=== PATIENT | male | born 1945 | race Caucasian/White ===

== ENCOUNTER 2018-10-21 13:07 | Day surgery (SDC) | payer MEDICARE, OTHER, SELFPAY ==
--- NOTE | 2018-10-21 | PATH_ITS ---
[facility] Accession Number: [id number] . 01 Material submitted: . HEPATIC FLEXURE POLYP AT 75CM . 02 Diagnosis: Hepatic Flexure, Polyp at 75 cm, Biopsy: Tubular adenoma. MRV/10/22/2018 . 02 Electronically signed: . Gema Winter MD, Pathologist NPI- [id number] . 01 Gross description: . Received in one formalin-filled container, labeled with the patient's name and labeled hepatic flexure polyp at 75 cm, are four 0.2-0.4 cm portions of tissue, entirely submitted in one cassette. ([id number]) /FRR . 02 Pathologist provided ICD-10: D12.3 . 02 CPT . 933839 Performed at: 01 [facility] [address] [id number] MD Hung Herndon MD Phone: [phone] Performed at: 02 [facility] [address] [place] [id number] MD Gema Winter MD Phone: [phone]
--- NOTE | 2018-10-21 13:27 | PM.PREOP ---
Pre-operative Note Interval Note History & Physical reviewed/Exam performed by Physician: Yes Changes to H&P: No H&P completed within 30 days and has changed as indicated here:: Patient seen and examined. History and physical examination from October 11, 2018 is on the chart and has not changed. Proceed with colonoscopy today as planned. ASA Class (for procedural sedation): II
[2018-10-21 13:31] VITALS: BP 112/69; PULSE 73; RESP 16; TEMP 36.6; O2SAT 95; BMI 30.2
[2018-10-21] MEDS: SODIUM CHLORIDE 0.9% 1,000 ML 200 ML IV (13:35)
[2018-10-21] MEDS: fentaNYL 250 MCG/5 ML INJ IV (14:01)
[2018-10-21] MEDS: MIDAZOLAM 5 MG/5 ML VIAL IV (14:02)
--- NOTE | 2018-10-21 14:22 | PM.OP.ENDO ---
Operative Date/Time/Diagnoses Date of procedure: 10/21/18 Time of procedure: 14:22 Pre-op diagnosis: Change in bowel habits and rectal bleeding Post-op diagnosis: other (Diverticulosis and colon polyp) Procedure & Clinicians Study performed: 1. Sedation per surgeon 2. Colonoscopy with cold forceps polypectomy Same procedure as scheduled: Yes Indications: 73-year-old male who presented with change in bowel habits and rectal bleeding. He was also having some fecal urgency. Colonoscopy was recommended. Surgeon: Nasir Ward Procedure Notes SCOAP/Timeout: Yes Procedure in detail: After obtaining informed consent, the patient was brought to the GI suite and placed in the left lateral decubitus position on the examination table. After placement of appropriate monitors, the patient was given incremental doses of Versed and Fentanyl until an appropriate level of sedation was achieved. A time out was held per SCOAP protocol. A digital rectal examination was performed and did not reveal any masses or obstructing lesions. The colonoscope was gently passed into the patient's anus and the entire colon navigated to the level of the cecum with minimal difficulty. Terminal ileum was intubated and noted to be grossly normal. Bowel preparation was suboptimal in places and required significant irrigation for adequate visualization. Once in the cecum, the scope was withdrawn being sure to go before and beyond all mucosal folds and prominences and get an excellent examination. The findings are noted above. At the level of the rectal vault, the scope was retroflexed and the internal anal canal was examined. The scope was straightened and air aspirated from the colon. The instrument was removed from the patient's body and the procedure was concluded. The patient was allowed to awaken from sedation without difficulty and taken to the post-anesthesia care unit in good condition. Scope withdrawal time: 8:32 min Sedation minutes: 24 Findings: diverticulosis and polyp Specimen(s): other (Hepatic flexure polyp at 75 cm) Complications: none Recommendations: Colonscopy in 5 years, High fiber diet and Will call with biopsy results Plan for aftercare: 1. Discharge home Follow up: as needed Disposition: PACU
[2018-10-21 14:26] VITALS: BP 115/65; PULSE 76; RESP 16; TEMP 36.6; O2SAT 93
[2018-10-21 14:31] VITALS: BP 118/69; PULSE 80; RESP 16; O2SAT 94
[2018-10-21 14:36] VITALS: BP 98/66; PULSE 64; RESP 16; O2SAT 93
[2018-10-21 14:40] VITALS: BP 107/66; PULSE 68; RESP 16; TEMP 36.4; O2SAT 93
[2018-10-21 15:05] VITALS: BP 112/68; PULSE 64; RESP 16; TEMP 36.5; O2SAT 96
[2018-10-21 15:33] VITALS: BMI 30.2
== END 2018-10-21 15:20 | disposition home or self-care (01) ==
PROVIDERS: PCP Internal Medicine Cardiovascular Disease; Visit Provider Surgery
PROC: 0DJD8ZZ Inspection of Lower Intestinal Tract, Via Natural or Artificial Opening Endoscopic (ICD-10-PCS; CPT 45378; principal; 2018-10-21 15:00)
DX: K62.5 Hemorrhage of anus and rectum (principal); K64.4 Residual hemorrhoidal skin tags; R19.4 Change in bowel habit; R15.2 Fecal urgency; K57.30 Diverticulosis of large intestine without perforation or abscess without bleeding; D12.3 Benign neoplasm of transverse colon
CPT/HCPCS: 45380; 88305; 99152; 99153; J2250; J3010

== ENCOUNTER → 2021-09-27 11:10 | Outpatient (CLI) | payer MEDICARE, OTHER, SELFPAY ==
[2021-09-27 12:44] LABS: BUN Creatinine Ratio 13.6 (6-22); Blood Urea Nitrogen 18 mg/dL (9-20); Estimated Glomerular Filt Rate 52.7 mL/min (>60)
== END ==
PROVIDERS: PCP Internal Medicine; Referring Provider Surgery; Visit Provider Surgery
DX: M62.08 Separation of muscle (nontraumatic), other site (principal)
CPT/HCPCS: 36415; 82565; 84520

== ENCOUNTER → 2021-09-30 12:44 | Outpatient (CLI) | payer MEDICARE, OTHER, SELFPAY ==
--- NOTE | 2021-09-30 12:47 | DI.CT.S_ITS ---
PROCEDURE: CT ABDOMEN PELVIS W CON INDICATIONS: rectus diastasis vs ventral hernia TECHNIQUE: After the administration of oral and IV contrast, axial sections were acquired from the lung bases to the pubic symphysis. Coronal and sagittal reformats were performed. For radiation dose reduction, the following was used: automated exposure control, adjustment of mA and/or kV according to patient size. Valsalva performed during the procedure. COMPARISON: None. FINDINGS: Image quality: Excellent. Lung bases: Unremarkable. Heart: Mild aortic valvular calcification. ABDOMEN: Liver: Right lobe is prominent. Gallbladder: Unremarkable. Biliary ducts: Unremarkable. Pancreas: Unremarkable. Spleen: Unremarkable. Adrenal Glands: No nodule. Kidneys and Ureters: No hydronephrosis. 3 nonobstructing left kidney stones at the inferior pole. Largest measures 0.5 cm. Stomach and Bowel: Stomach, small bowel loops, and colon are unremarkable. The appendix is not identified. Peritoneum: No abnormal intraperitoneal fluid. No free air. Missed the mesentery in the left abdomen. Small mesenteric nodes. Ventral Wall: Fat containing umbilical hernia. There may be rectus diastasis. Abdominal Nodes: No retroperitoneal or mesenteric adenopathy by size criteria. Vessels: Minimal ectasia of the abdominal aorta measuring 2.7 cm. Moderate calcified plaque. Right hepatic artery replaced to the SMA. PELVIS: Pelvic Organs: Prostate brachytherapy seeds. Bladder: Unremarkable. Pelvic Nodes: No enlarged lymph nodes. Miscellaneous: Possible small left inguinal hernia. Bones: Moderate hip DJD. Large vertebral body osteophytes. There are bridging osteophytes or syndesmophytes. Multilevel DDD. Loss of disc space height at L5-S1. There is anterolisthesis of L5 on S1. IMPRESSION: 1. Small fat containing umbilical hernia. Suspect rectus diastasis. 2. Hazy mesentery in the left abdomen. This is a nonspecific finding but could be seen in sclerosing mesenteritis. No free fluid. 3. Nonobstructing left kidney stones x3. Dictated by: Adam Nichole M.D. on 09/30/2021 at 13:54 Approved by: Adam Nichole M.D. on 09/30/2021 at 14:05
== END ==
PROVIDERS: PCP Internal Medicine; Referring Provider Surgery; Visit Provider Surgery
DX: K42.9 Umbilical hernia without obstruction or gangrene (principal); N20.0 Calculus of kidney; M16.9 Osteoarthritis of hip, unspecified
CPT/HCPCS: 74177

== ENCOUNTER 2023-11-18 14:30 | Outpatient (RCR) | payer MEDICARE, OTHER, SELFPAY ==
--- NOTE | 2023-09-15 16:42 | PT.OIE ---
Current Diagnoses Unilateral primary osteoarthritis, left knee (09/15/23) Past Medical History (Last Updated 09/11/21 @ 11:20 by Sandra Rocha RN) Bursopathy Dysphagia Hyperlipemia Low testosterone Osteoarthritis Past Surgical History (Last Reviewed 10/11/18 @ 14:56 by Nasir Ward MD) H/O arthroscopic knee surgery H/O cataract extraction H/O total knee replacement History of cataract removal with insertion of prosthetic lens History of colonoscopy History of right knee joint replacement Visit Care Team Role Provider Type Phuc Rea MD Family Provider Non-Staff Primary Care Provider Specialty: Internal Medicine Address: [address] [place] [address], [id number] Email: Pastora Ochoa PA-C Attending Provider Non-Staff Referring Provider Specialty: Medical Address: [address] [place] [address], [phone] Email: Physical Therapy Initial Evaluation PT-OP-A Visit Information Start: 09/15/23 13:36 Freq: Status: Active Protocol: Document 09/15/23 11:15 DCW (Rec: 09/15/23 13:40 [facility] [id number]) Out-Patient Physical Therapy Visit Information Visit Information Visit Type Initial Evaluation Visit Start Time 11:15 Visit Stop Time 12:00 Total Visit Minutes 45 Visit Number 1 Number of 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 Pt reports he underwent a right TKA in 2017, and notes that he didn't get to where they wanted me, but there was a lot more trauma to that knee over the years. Still limited significantly with right leg ROM, but was able to return to playing racquetball and pickle ball, which are his preferred hobbies, and would like to get back to them again following this most recent knee replacement. Notes pain is a 5/10 when I use it, but I can get it into comfortable positions and sleep pretty easily. PT-OP-C Subjective Start: 09/15/23 13:36 Freq: Status: Active Protocol: Document 09/15/23 11:15 DCW (Rec: 09/15/23 13:45 DCW [id number]) OP-PT Subjective Patient Comments Patient Comments I got my right knee done in 2017. It never got the motion to where they wanted it, but it's good enough it doesn't limit me. Patient Questionnaires Lower Extremity Functional Scale LEFS Score 40/80 = 50% LEFS Impairment 40 to 59% Impaired (Score 32- 47) PT-OP-E Functional Tests Start: 09/15/23 13:36 Freq: Status: Active Protocol: Document 09/15/23 11:15 DCW (Rec: 09/15/23 13:45 DCW [id number]) Functional Tests 2 Minute Walk Test Distance 254' Device Used FWW Comments 2.11 ft/sec 30 Second Sit to Stand Test Score x9 repetitions Timed Up and Go (TUG) Score 12.73 /c FWW Comments Three-trial Average (13.35, 14 .45, 11.46) TUG Impairment Rating 20 to <40% Impaired (Score 12- 13) PT-OP-K Range of Motion Start: 09/15/23 13:36 Freq: Status: Active Protocol: Document 09/15/23 11:15 DCW (Rec: 09/15/23 13:40 DCW [id number]) Knee Goniometric Range of Motion Knee Right Knee ROM WFL No Patient Position Supine Flexion Active (degrees) 102 Extension Active (degrees) 5 Comments 6? extension lag Left Knee ROM WFL No Patient Position Supine Flexion Active (degrees) 99 Extension Active (degrees) 12 Comments 20? extension lag PT-OP-Q Treatments Start: 09/15/23 13:36 Freq: Status: Active Protocol: Document 09/15/23 11:15 DCW (Rec: 09/15/23 13:40 DCW [id number]) Cardio Equipment Recumbent Bicycle Duration (Minutes) 9 Seat Position 7 Other Occasional full rotation PT-OP-T Assessment and Plan Start: 09/15/23 13:36 Freq: Status: Active Protocol: Document 09/15/23 11:15 DCW (Rec: 09/15/23 16:41 DC [id number]) Physical Therapy Assessment Rehab Potential Rehabilitation Potential Excellent Evaluation Complexity Number of Personal Factors/Comorbidities 1-2 Number of Body Systems Impaired 1-2 Clinical Presentation at Evaluation Stable Impairments Impairments Activity Tolerance,Functional Activities,Gait,ROM,Soft Tissue Mobility,Strength,Tone Goals Two Impairment Significantly limited left knee ROM 12?-99? Program Checker Goal (LTG) Increase left knee ROM to 0? extension and >120? flexion in order [facility] and improve ability to enter house with one JUSTIN LTG Duration 11/16/23 One Impairment Pt does not have an appropriate home exercise program Short Term Goal (STG) Pt to be independent and compliant with an appropriate HEP STG Duration 10/16/23 Assessment Summary Assessment Pt presents as expected one week s/p left TKA. Pt is demonstrating limited gait, decreased activity tolerance, limited knee ROM bilaterally, and weakness. Pt's right knee also significantly limited ROM following TKA 6 years ago. Overall, pt doing fairly well , did need adjustment to FWW, however able to ambulate much better following raising handles. Pt able to perform 9 repetitions during 30 sit-to- stand, ambulated 254' during 2MWT using FWW, and scored a 12.75 on his TUG. Pt should benefit from skilled therapy focusing on knee ROM, gait training, strengthening, and activity tolerance Physical Therapy Plan Frequency and Duration Frequency of Treatment 2x/Week Plan of Care Start Date 09/15/23 Plan of Care End Date 11/16/23 Therapeutic Interventions Therapeutic Interventions Balance Training,Gait Training ,Home Exercise Program,Joint Mobilizations,Manual Therapy, Neuromuscular Re-education, Patient/Caregiver Education, Self-Care/Home Management,Soft Tissue Mobilization, Therapeutic Activities, Therapeutic Exercises Modalities Cold Pack/Ice Massage,Electric Stimulation,Hot Packs, Ultrasound Next Visit Focus/Plan Next Note Type Treatment Note Next Visit Plan ROM, strengthening, gait training
--- NOTE | 2023-09-15 16:42 | PT.OPPOC ---
Physical, Occupational & Speech Therapy At [facility] Current Diagnoses Unilateral primary osteoarthritis, left knee (09/15/23) Visit Care Team Role Provider Type Phuc Rea MD Family Provider Non-Staff Primary Care Provider Specialty: Internal Medicine Address: [address] [place], [address] Email: Pastora Ochoa PA-C Attending Provider Non-Staff Referring Provider Specialty: Medical Address: [address] [place] [address], [phone] Email: Plan Of Care PT-OP-T Assessment and Plan Start: 09/15/23 13:36 Freq: Status: Active Protocol: Document 09/15/23 11:15 DCW (Rec: 09/15/23 16:41 DCW [id number]) Physical Therapy Assessment Rehab Potential Rehabilitation Potential Excellent Evaluation Complexity Number of Personal Factors/Comorbidities 1-2 Number of Body Systems Impaired 1-2 Clinical Presentation at Evaluation Stable Impairments Impairments Activity Tolerance,Functional Activities,Gait,ROM,Soft Tissue Mobility,Strength,Tone Goals Two Impairment Significantly limited left knee ROM 12?-99? Will Call Clerk Goal (LTG) Increase left knee ROM to 0? extension and >120? flexion in order to return to racquetball and improve ability to enter house with one JUSTIN LTG Duration 11/16/23 One Impairment Pt does not have an appropriate home exercise program Short Term Goal (STG) Pt to be independent and compliant with an appropriate HEP STG Duration 10/16/23 Assessment Summary Assessment Pt presents as expected one week s/p left TKA. Pt is demonstrating limited gait, decreased activity tolerance, limited knee ROM bilaterally, and weakness. Pt's right knee also significantly limited ROM following TKA 6 years ago. Overall, pt doing fairly well, did need adjustment to FWW, however able to ambulate much better following raising handles. Pt able to perform 9 repetitions during 30 sit-to- stand, ambulated 254' during 2MWT using FWW, and scored a 12.75 on his TUG. Pt should benefit from skilled therapy focusing on knee ROM, gait training, strengthening, and activity tolerance Physical Therapy Plan Frequency and Duration Frequency of Treatment 2x/Week Plan of Care Start Date 09/15/23 Plan of Care End Date 11/16/23 Therapeutic Interventions Therapeutic Interventions Balance Training,Gait Training ,Home Exercise Program,Joint Mobilizations,Manual Therapy, Neuromuscular Re-education, Patient/Caregiver Education, Self-Care/Home Management,Soft Tissue Mobilization, Therapeutic Activities, Therapeutic Exercises Modalities Cold Pack/Ice Massage,Electric Stimulation,Hot Packs, Ultrasound Next Visit Focus/Plan Next Note Type Treatment Note Next Visit Plan ROM, strengthening, gait training Plan of Care Dates Plan of Care Start Date 09/15/23 Plan of Care End Date 11/16/23 Electronically Signed by: Edis Epstein, PT 09/15/23 0164 If you are in agreement with this Plan of Care, please return a signed and dated copy. I have reviewed this Plan of Care and certify that the skilled therapy services above are required to meet the patient?s needs. Physician Signature Date Printed Name and Credentials Clinical Instructor Signature Printed Name and Credentials
--- NOTE | 2023-09-17 11:59 | PT.OTN ---
Current Diagnoses Unilateral primary osteoarthritis, left knee (09/17/23) Physical Therapy Treatment Note PT-OP-A Visit Information Start: 09/15/23 13:36 Freq: Status: Active Protocol: Document 09/17/23 11:18 DCW (Rec: 09/17/23 11:59 DCW [id number]) Out-Patient Physical Therapy Visit Information Visit Information Visit Type Treatment Note Visit Start Time 11:18 Visit Stop Time 12:00 Total Visit Minutes 42 Visit Number [address] LIGHT SERVICER Visits 0 Evaluation Information Evaluation Date 09/15/23 PT-OP-B Current Condition Start: 09/15/23 13:36 Freq: Status: Active Protocol: Document 09/15/23 11:15 DCW (Rec: 09/15/23 16:34 DCW [id number]) Current Condition History of Current Condition Onset Date 09/08/23 Current Complaints S/p left TKA History of Current Condition Pt attends his initial physical therapy evaluation one week s/p left TKA. Pt reports he underwent a right TKA in 2016, and notes that he didn't get to where they wanted me, but there was a lot more trauma to that knee over the years. Still limited significantly with right leg ROM, but was able to return to playing [employer] and pickle ball, which are his preferred hobbies, and would like to get back to them again following this most recent knee replacement. Notes pain is a 5/10 when I use it, but I can get it into comfortable positions and sleep pretty easily. PT-OP-C Subjective Start: 09/15/23 13:36 Freq: Status: Active Protocol: Document 09/17/23 11:18 DCW (Rec: 09/17/23 11:59 DCW [id number]) OP-PT Subjective Patient Comments Patient Comments Pt notes he is doing alright today, I haven't gotten into my strong meds yet. PT-OP-E Functional Tests Start: 09/15/23 13:36 Freq: Status: Active Protocol: Document 09/15/23 11:15 DCW (Rec: 09/15/23 13:45 DCW [id number]) Functional Tests 2 Minute Walk Test Distance 254' Device Used FWW Comments 2.11 ft/sec 30 Second Sit to Stand Test Score x9 repetitions Timed Up and Go (TUG) Score 12.73 /c FWW Comments Three-trial Average (13.35, 14 .45, 11.46) TUG Impairment Rating 20 to <40% Impaired (Score 12- 13) PT-OP-K Range of Motion Start: 09/15/23 13:36 Freq: Status: Active Protocol: Document 09/15/23 11:15 DCW (Rec: 09/15/23 13:40 DCW [id number]) Knee Goniometric Range of Motion Knee Right Knee ROM WFL No Patient Position Supine Flexion Active (degrees) 102 Extension Active (degrees) 5 Comments 6? extension lag Left Knee ROM WFL No Patient Position Supine Flexion Active (degrees) 99 Extension Active (degrees) 12 Comments 20? extension lag PT-OP-Q Treatments Start: 09/15/23 13:36 Freq: Status: Active Protocol: Document 09/17/23 11:18 DCW (Rec: 09/17/23 11:59 DCW [id number]) Cardio Equipment Recumbent Bicycle Duration (Minutes) 7 Resistance 2 Seat Position 7 Gym Equipment Shuttle Recovery Bilateral Squats Resistance 37# Shuttle Recovery Platform Stable Reps/Time Pause into extension Therapeutic Ball Knee Flexion Exercise Details Knee flexion /c strap Ball Size/Color Blue - 45 cm Body Position Supine Therapeutic Exercises Supine Exercises Quad sets Supine Exercise Name Quad sets during extension stretch, heels on bolster Side bilateral Standing Exercises Flexion Stretch Standing Exercise Name Step flexion stretch Side bilateral Manual Therapy Treatment Joint Mobilizations Knee Joint B Knee Direction A<->P Grade III Body Position Hooklying PT-OP-T Assessment and Plan Start: 09/15/23 13:36 Freq: Status: Active Protocol: Document 09/17/23 11:18 DCW (Rec: 09/17/23 11:59 DCW [id number]) Physical Therapy Assessment Impairments Impairments Activity Tolerance,Functional Activities,Gait,ROM,Soft Tissue Mobility,Strength,Tone Goals Two Impairment Significantly limited left knee ROM 12?-99? Longterm Goal (LTG) Increase left knee ROM to 0? extension and >120? flexion in order to return to racquetball and improve ability to enter house with one JUSTIN LTG Duration 11/16/23 One Impairment Pt does not have an appropriate home exercise program Short Term Goal (STG) Pt to be independent and compliant with an appropriate HEP STG Duration 10/16/23 Assessment Summary Assessment Pt able to get 117? passive flexion on left knee, significant improvement since initial evaluation, very good progress for 10 days post-op. Limited change with right knee following joint mobilization and stretching. Very good response overall today. Physical Therapy Plan Frequency and Duration Frequency of Treatment 2x/Week Plan of Care Start Date 09/15/23 Plan of Care End Date 11/16/23 Therapeutic Interventions Therapeutic Interventions Balance Training,Gait Training ,Home Exercise Program,Joint Mobilizations,Manual Therapy, Neuromuscular Re-education, Patient/Caregiver Education, Self-Care/Home Management,Soft Tissue Mobilization, Therapeutic Activities, Therapeutic Exercises Modalities Cold Pack/Ice Massage,Electric Stimulation,Hot Packs, Ultrasound Next Visit Focus/Plan Next Note Type Treatment Note Next Visit Plan ROM, strengthening, gait training
--- NOTE | 2023-09-22 10:29 | PT.OTN ---
Current Diagnoses Unilateral primary osteoarthritis, left knee (09/22/23) Physical Therapy Treatment Note PT-OP-A Visit Information Start: 09/15/23 13:36 Freq: Status: Active Protocol: Document 09/22/23 09:48 DCW (Rec: 09/22/23 10:29 DCW [id number]) Out-Patient Physical Therapy Visit Information Visit Information Visit Type Treatment Note Visit Start Time 09:48 Visit Stop Time 10:30 Total Visit Minutes 42 Visit Number 3 Number of TIN CUTTER Visits 0 Evaluation Information Evaluation Date 09/15/23 PT-OP-B Current Condition Start: 09/15/23 13:36 Freq: Status: Active Protocol: Document 09/15/23 11:15 DCW (Rec: 09/15/23 16:34 DCW [id number]) Current Condition History of Current Condition Onset Date 09/08/23 Current Complaints S/p left TKA History of Current Condition Pt attends his initial physical therapy evaluation one week s/p left TKA. Pt reports he underwent a right TKA in 2017, and notes that he didn't get to where they wanted me, but there was a lot more trauma to that knee over the years. Still limited significantly with right leg ROM, but was able to return to playing racqueLocaloall and pickle ball, which are his preferred hobbies, and would like to get back to them again following this most recent knee replacement. Notes pain is a 5/10 when I use it, but I can get it into comfortable positions and sleep pretty easily. PT-OP-C Subjective Start: 09/15/23 13:36 Freq: Status: Active Protocol: Document 09/22/23 09:48 DCW (Rec: 09/22/23 10:29 DCW [id number]) OP-PT Subjective Patient Comments Patient Comments My knees usually feel better in the morning than they do later in the day. PT-OP-E Functional Tests Start: 09/15/23 13:36 Freq: Status: Active Protocol: Document 09/15/23 11:15 DCW (Rec: 09/15/23 13:45 DCW [id number]) Functional Tests 2 Minute Walk Test Distance 254' Device Used FWW Comments 2.11 ft/sec 30 Second Sit to Stand Test Score x9 repetitions Timed Up and Go (TUG) Score 12.73 /c FWW Comments Three-trial Average (13.35, 14 .45, 11.46) TUG Impairment Rating 20 to <40% Impaired (Score 12- 13) PT-OP-K Range of Motion Start: 09/15/23 13:36 Freq: Status: Active Protocol: Document 09/15/23 11:15 DCW (Rec: 09/15/23 13:40 DCW [id number]) Knee Goniometric Range of Motion Knee Right Knee ROM WFL No Patient Position Supine Flexion Active (degrees) 102 Extension Active (degrees) 5 Comments 6? extension lag Left Knee ROM WFL No Patient Position Supine Flexion Active (degrees) 99 Extension Active (degrees) 12 Comments 20? extension lag PT-OP-Q Treatments Start: 09/15/23 13:36 Freq: Status: Active Protocol: Document 09/22/23 09:48 DCW (Rec: 09/22/23 10:29 DCW [id number]) Cardio Equipment Recumbent Bicycle Duration (Minutes) 7 Resistance 4 Seat Position 7 Gym Equipment Shuttle Recovery Bilateral Squats Resistance 50# Shuttle Recovery Platform Stable Reps/Time Pause into extension Therapeutic Exercises Standing Exercises TKE Standing Exercise Name TKE Side bilateral Resistance Lv 3 Flexion Stretch Standing Exercise Name Step flexion stretch Side bilateral Gait Training Gait Activity SPC Description SPC trial Device Used SPC Level of Assistance SBA Distance/Duration 300' Comments Sequencing, step length PT-OP-T Assessment and Plan Start: 09/15/23 13:36 Freq: Status: Active Protocol: Document 09/22/23 09:48 DCW (Rec: 09/22/23 10:29 DCW [id number]) Physical Therapy Assessment Impairments Impairments Activity Tolerance,Functional Activities,Gait,ROM,Soft Tissue Mobility,Strength,Tone Goals Two Impairment Significantly limited left knee ROM 12?-99? Drafter Automotive Design Layout Goal (LTG) Increase left knee ROM to 0? extension and >120? flexion in [facility] and improve ability to enter house with one JUSTIN LTG Duration 11/16/23 One Impairment Pt does not have an appropriate home exercise program Short Term Goal (STG) Pt to be independent and compliant with an appropriate HEP STG Duration 10/16/23 Assessment Summary Assessment Pt continues to have good response in left leg s/p L TKA , right prior TKA now becoming the bigger limiting factor. Pt tolerated gait with SPC well, encouraged to continue to use FWW or SPC walking around home, still antalgic gait with no AD. Physical Therapy Plan Frequency and Duration Frequency of Treatment 2x/Week Plan of Care Start Date 09/15/23 Plan of Care End Date 11/16/23 Therapeutic Interventions Therapeutic Interventions Balance Training,Gait Training ,Home Exercise Program,Joint Mobilizations,Manual Therapy, Neuromuscular Re-education, Patient/Caregiver Education, Self-Care/Home Management,Soft Tissue Mobilization, Therapeutic Activities, Therapeutic Exercises Modalities Cold Pack/Ice Massage,Electric Stimulation,Hot Packs, Ultrasound Next Visit Focus/Plan Next Note Type Treatment Note Next Visit Plan ROM, strengthening, gait training
--- NOTE | 2023-09-24 12:47 | PT.OTN ---
Current Diagnoses Unilateral primary osteoarthritis, left knee (09/24/23) Physical Therapy Treatment Note PT-OP-A Visit Information Start: 09/15/23 13:36 Freq: Status: Active Protocol: Document 09/24/23 11:11 SW (Rec: 09/24/23 12:44 [id number]) Out-Patient Physical Therapy Visit Information Visit Information Visit Type Treatment Note Visit Note Pt late Visit Start Time 11:33 Visit Stop Time 12:11 Total Visit Minutes 38 Visit Number 4 Number of PLANT SUPERINTENDENT Visits 1 PT-OP-B Current Condition Start: 09/15/23 13:36 Freq: Status: Active Protocol: Document 09/15/23 11:15 DCW (Rec: 09/15/23 16:34 DCW [id number]) Current Condition History of Current Condition Onset Date 09/08/23 Current Complaints S/p left TKA History of Current Condition Pt attends his initial physical therapy evaluation one week s/p left TKA. Pt reports he underwent a right TKA in 2016, and notes that he didn't get to where they wanted me, but there was a lot more trauma to that knee over the years. Still limited significantly with right leg ROM, but was able to return to playing racquetball and pickle ball, which are his preferred hobbies, and would like to get back to them again following this most recent knee replacement. Notes pain is a 5/10 when I use it, but I can get it into comfortable positions and sleep pretty easily. PT-OP-C Subjective Start: 09/15/23 13:36 Freq: Status: Active Protocol: Document 09/24/23 11:11 (Rec: 09/24/23 12:44 [id number]) OP-PT Subjective Patient Comments Patient Comments Pt reports he had his 2 week followup yesterday, scar tissue looked good and pt was cleared to drive. PT-OP-E Functional Tests Start: 09/15/23 13:36 Freq: Status: Active Protocol: Document 09/15/23 11:15 DCW (Rec: 09/15/23 13:45 DCW [id number]) Functional Tests 2 Minute Walk Test Distance 254' Device Used FWW Comments 2.11 ft/sec 30 Second Sit to Stand Test Score x9 repetitions Timed Up and Go (TUG) Score 12.73 /c FWW Comments Three-trial Average (13.35, 14 .45, 11.46) TUG Impairment Rating 20 to <40% Impaired (Score 12- 13) PT-OP-K Range of Motion Start: 09/15/23 13:36 Freq: Status: Active Protocol: Document 09/15/23 11:15 DCW (Rec: 09/15/23 13:40 DCW [id number]) Knee Goniometric Range of Motion Knee Right Knee ROM WFL No Patient Position Supine Flexion Active (degrees) 102 Extension Active (degrees) 5 Comments 6? extension lag Left Knee ROM WFL No Patient Position Supine Flexion Active (degrees) 99 Extension Active (degrees) 12 Comments 20? extension lag PT-OP-Q Treatments Start: 09/15/23 13:36 Freq: Status: Active Protocol: Document 09/24/23 11:11 SW (Rec: 09/24/23 12:44 SW [id number]) Cardio Equipment Recumbent Bicycle Duration (Minutes) 7 Resistance 4 Seat Position 6 Gym Equipment Shuttle Recovery Bilateral Squats Resistance 50# (new bands) Shuttle Recovery Platform Stable Reps/Time Pause into extension, pause into flexion Therapeutic Ball Knee Flexion Exercise Details Knee flexion /c strap Ball Size/Color Blue - 45 cm Body Position Supine Therapeutic Exercises Supine Exercises Knee Ext Supine Exercise Name low load long, duration ext stretch Side left Resistance 5# Equipment Used Bolster elevating L heel Reps/Minutes x 5 min Comments Cues for breathwork to relax tissues into stretch Quad sets Supine Exercise Name Quad sets on bolster Side bilateral Reps/Minutes x15 5 hold Standing Exercises Ext Stretch Standing Exercise Name Step Ext stretch Side left Reps/Minutes 2x30 TKE Standing Exercise Name TKE Side bilateral Resistance Lv 3 Flexion Stretch Standing Exercise Name Step flexion stretch Side bilateral PT-OP-T Assessment and Plan Start: 09/15/23 13:36 Freq: Status: Active Protocol: Document 09/24/23 11:11 SW (Rec: 09/24/23 12:44 SW [id number]) Physical Therapy Assessment Goals Two Impairment Significantly limited left knee ROM 12?-99? Sap Technical Architect Goal (LTG) Increase left knee ROM to 0? extension and >120? flexion [facility] and improve ability to enter house with one JUSTIN LTG Duration 11/16/23 One Impairment Pt does not have an appropriate home exercise program Short Term Goal (STG) Pt to be independent and compliant with an appropriate HEP STG Duration 10/16/23 Assessment Summary Assessment Continued strengthening and ROM exercises this session toward pt goals. Reviewed TKE for strengthening this session verbal cues for eccentric control and tactile cues for targeted muscles, issued HEP HO, educated pt on safe options for securing TB to stable surface. Facilitated bilat flex/ext stretch on shuttle recovery, RLE limiting amount of flex during bilateral squat. Educated pt on breathing into stretch to decrease tissue resistance with quick into stretch. Physical Therapy Plan Frequency and Duration Frequency of Treatment 2x/Week Plan of Care Start Date 09/15/23 Plan of Care End Date 11/16/23 Therapeutic Interventions Therapeutic Interventions Balance Training,Gait Training ,Home Exercise Program,Joint Mobilizations,Manual Therapy, Neuromuscular Re-education, Patient/Caregiver Education, Self-Care/Home Management,Soft Tissue Mobilization, Therapeutic Activities, Therapeutic Exercises Modalities Cold Pack/Ice Massage,Electric Stimulation,Hot Packs, Ultrasound Next Visit Focus/Plan Next Note Type Treatment Note Next Visit Plan ROM, strengthening, gait training
--- NOTE | 2023-09-30 16:25 | PT.OTN ---
Current Diagnoses Unilateral primary osteoarthritis, left knee (09/30/23) Physical Therapy Treatment Note PT-OP-A Visit Information Start: 09/15/23 13:36 Freq: Status: Active Protocol: Document 09/30/23 13:03 (Rec: 09/30/23 13:48 [id number]) Out-Patient Physical Therapy Visit Information Visit Information Visit Type Treatment Note Visit Note pt late Visit Start Time 13:03 Visit Stop Time 13:45 Total Visit Minutes 42 Visit Number 5 Number of OUTBOARD MOTOR INSPECTOR Visits 2 PT-OP-B Current Condition Start: 09/15/23 13:36 Freq: Status: Active Protocol: Document 09/15/23 11:15 DCW (Rec: 09/15/23 16:34 DCW [id number]) Current Condition History of Current Condition Onset Date 09/08/23 Current Complaints S/p left TKA History of Current Condition Pt attends his initial physical therapy evaluation one week s/p left TKA. Pt reports he underwent a right TKA in 2016, and notes that he didn't get to where they wanted me, but there was a lot more trauma to that knee over the years. Still limited significantly with right leg ROM, but was able to return to playing racqueSuperDerivativesall and pickle ball, which are his preferred hobbies, and would like to get back to them again following this most recent knee replacement. Notes pain is a 5/10 when I use it, but I can get it into comfortable positions and sleep pretty easily. PT-OP-C Subjective Start: 09/15/23 13:36 Freq: Status: Active Protocol: Document 09/30/23 13:03 (Rec: 09/30/23 13:48 [id number]) OP-PT Subjective Patient Comments Patient Comments Pt reports he hurt his L knee donning his own compression stocking, pulled it into valgus, set him back a few days, usually dons. PT-OP-E Functional Tests Start: 09/15/23 13:36 Freq: Status: Active Protocol: Document 09/15/23 11:15 DCW (Rec: 09/15/23 13:45 DCW [id number]) Functional Tests 2 Minute Walk Test Distance 254' Device Used FWW Comments 2.11 ft/sec 30 Second Sit to Stand Test Score x9 repetitions Timed Up and Go (TUG) Score 12.73 /c FWW Comments Three-trial Average (13.35, 14 .45, 11.46) TUG Impairment Rating 20 to <40% Impaired (Score 12- 13) PT-OP-K Range of Motion Start: 09/15/23 13:36 Freq: Status: Active Protocol: Document 09/15/23 11:15 DCW (Rec: 09/15/23 13:40 DCW [id number]) Knee Goniometric Range of Motion Knee Right Knee ROM WFL No Patient Position Supine Flexion Active (degrees) 102 Extension Active (degrees) 5 Comments 6? extension lag Left Knee ROM WFL No Patient Position Supine Flexion Active (degrees) 99 Extension Active (degrees) 12 Comments 20? extension lag PT-OP-Q Treatments Start: 09/15/23 13:36 Freq: Status: Active Protocol: Document 09/30/23 13:03 SW (Rec: 09/30/23 13:48 SW [id number]) Cardio Equipment Recumbent Bicycle Duration (Minutes) 7 Resistance 4 Seat Position 6 Other pain initially, relieved with more revolutions Gym Equipment Therapeutic Ball Knee Flexion Exercise Details Knee flexion /c strap Ball Size/Color Blue - 45 cm Body Position Supine Therapeutic Exercises Supine Exercises SAQ Supine Exercise Name SAQ Side left Reps/Minutes x10 Comments tactile/verbal facilitation Knee Ext Supine Exercise Name low load long, duration ext stretch Side left Resistance 5# Equipment Used Bolster elevating L heel Reps/Minutes x 5 min Comments Cues for breathwork to relax tissues into stretch Quad sets Supine Exercise Name Quad sets on bolster Side bilateral Reps/Minutes x15 5 hold Sitting Exercises LAQ Sitting Exercise Name Trialed, difficulty reaching TKE Reps/Minutes x5 Comments mm fatigue compensation at hip , dsct'd d/t compensation with fatigue Standing Exercises Ext Stretch Standing Exercise Name Step Ext stretch Side left Reps/Minutes 2x30 TKE Standing Exercise Name TKE Side bilateral Resistance Lv 3 Flexion Stretch Standing Exercise Name Step flexion stretch Side bilateral Reps/Minutes 2x30 Other Exercises sit to stand Other Exercise Name sit to stand Side bilateral Reps/Minutes x10 Comments cue for equal weight bearing, eccentric control Gait Training Gait Activity SPC Description SPC trialed Device Used SPC Level of Assistance SBA Distance/Duration 300' Comments Sequencing, step length PT-OP-T Assessment and Plan Start: 09/15/23 13:36 Freq: Status: Active Protocol: Document 09/30/23 13:03 (Rec: 09/30/23 13:48 [id number]) Physical Therapy Assessment Goals Two Impairment Significantly limited left knee ROM 12?-99? Chcf Goal (LTG) Increase left knee ROM to 0? extension and >120? flexion in order to return to racquetball and improve ability to enter house with one JUSTIN LTG Duration 11/16/23 One Impairment Pt does not have an appropriate home exercise program Short Term Goal (STG) Pt to be independent and compliant with an appropriate HEP STG Duration 10/16/23 Assessment Summary Assessment Pt ambulated into session with SPC. Continued strengthening and stretching of LLE for progress toward pt goals. Initiated sit to stand this session to strengthen, focusing on equal weight bearing. Pt still ambulates with antalgic gait continued gait training initiated by PT in prior session, pt demonstrated decreased stance time on LLE focused on normalizing gait mechanics, discussed importance of safety with AD and ambulating without antalgic gait and improved mechanics prior to discontinuing. Physical Therapy Plan Frequency and Duration Frequency of Treatment 2x/Week Plan of Care Start Date 09/15/23 Plan of Care End Date 11/16/23 Therapeutic Interventions Therapeutic Interventions Balance Training,Gait Training ,Home Exercise Program,Joint Mobilizations,Manual Therapy, Neuromuscular Re-education, Patient/Caregiver Education, Self-Care/Home Management,Soft Tissue Mobilization, Therapeutic Activities, Therapeutic Exercises Modalities Cold Pack/Ice Massage,Electric Stimulation,Hot Packs, Ultrasound Next Visit Focus/Plan Next Note Type Treatment Note Next Visit Plan ROM, strengthening, gait training
--- NOTE | 2023-10-12 15:24 | PT.OTN ---
Current Diagnoses Unilateral primary osteoarthritis, left knee (10/12/23) Physical Therapy Treatment Note PT-OP-A Visit Information Start: 09/15/23 13:36 Freq: Status: Active Protocol: Document 10/12/23 14:30 DCW (Rec: 10/12/23 15:24 DCW [id number]) Out-Patient Physical Therapy Visit Information Visit Information Visit Type Treatment Note Visit Start Time 14:30 Visit Stop Time 15:15 Total Visit Minutes 45 Visit Number 6 Number of SCIENTIFIC PROCESS OPERATOR Visits 0 Evaluation Information Evaluation Date 09/15/23 PT-OP-B Current Condition Start: 09/15/23 13:36 Freq: Status: Active Protocol: Document 09/15/23 11:15 DCW (Rec: 09/15/23 16:34 DCW [id number]) Current Condition History of Current Condition Onset Date 09/08/23 Current Complaints S/p left TKA History of Current Condition Pt attends his initial physical therapy evaluation one week s/p left TKA. Pt reports he underwent a right TKA in 2016, and notes that he didn't get to where they wanted me, but there was a lot more trauma to that knee over the years. Still limited significantly with right leg ROM, but was able to return to playing racqueActionFlowall and pickle ball, which are his preferred hobbies, and would like to get back to them again following this most recent knee replacement. Notes pain is a 5/10 when I use it, but I can get it into comfortable positions and sleep pretty easily. PT-OP-C Subjective Start: 09/15/23 13:36 Freq: Status: Active Protocol: Document 10/12/23 14:30 DCW (Rec: 10/12/23 15:24 DCW [id number]) OP-PT Subjective Patient Comments Patient Comments Pt reports his back has been hurting more recently. PT-OP-E Functional Tests Start: 09/15/23 13:36 Freq: Status: Active Protocol: Document 09/15/23 11:15 DCW (Rec: 09/15/23 13:45 DCW [id number]) Functional Tests 2 Minute Walk Test Distance 254' Device Used FWW Comments 2.11 ft/sec 30 Second Sit to Stand Test Score x9 repetitions Timed Up and Go (TUG) Score 12.73 /c FWW Comments Three-trial Average (13.35, 14 .45, 11.46) TUG Impairment Rating 20 to <40% Impaired (Score 12- 13) PT-OP-K Range of Motion Start: 09/15/23 13:36 Freq: Status: Active Protocol: Document 09/15/23 11:15 DCW (Rec: 09/15/23 13:40 DCW [id number]) Knee Goniometric Range of Motion Knee Right Knee ROM WFL No Patient Position Supine Flexion Active (degrees) 102 Extension Active (degrees) 5 Comments 6? extension lag Left Knee ROM WFL No Patient Position Supine Flexion Active (degrees) 99 Extension Active (degrees) 12 Comments 20? extension lag PT-OP-Q Treatments Start: 09/15/23 13:36 Freq: Status: Active Protocol: Document 10/12/23 14:30 DCW (Rec: 10/12/23 15:24 DCW [id number]) Cardio Equipment Recumbent Bicycle Duration (Minutes) 7 Resistance 4 Seat Position 6 Gym Equipment Shuttle Recovery Bilateral Squats Resistance 50# (new bands) Shuttle Recovery Platform Stable Reps/Time Pause into extension, pause into flexion Therapeutic Exercises Supine Exercises Knee Ext Supine Exercise Name low load long, duration ext stretch Side left Resistance 5# Equipment Used Bolster elevating L heel Reps/Minutes x 5 min Standing Exercises Step up Standing Exercise Name Step-up Side bilateral Equipment Used 6 step Flexion Stretch Standing Exercise Name Step flexion stretch Side bilateral Reps/Minutes 2x30 Manual Therapy Treatment Joint Mobilizations Knee Joint B Knee Direction A<->P Grade III Body Position Hooklying PT-OP-T Assessment and Plan Start: 09/15/23 13:36 Freq: Status: Active Protocol: Document 10/12/23 14:30 DCW (Rec: 10/12/23 15:24 DCW [id number]) Physical Therapy Assessment Impairments Impairments Activity Tolerance,Functional Activities,Gait,ROM,Soft Tissue Mobility,Strength,Tone Goals Two Impairment Significantly limited left knee ROM 12?-99? Snf Goal (LTG) Increase left knee ROM to 0? extension and >120? flexion in order to return to racquetball and improve ability to enter house with one JUSTIN LTG Duration 11/16/23 One Impairment Pt does not have an appropriate home exercise program Short Term Goal (STG) Pt to be independent and compliant with an appropriate HEP STG Duration 10/16/23 Assessment Summary Assessment Knee ROM to 113 flexion on leg press. Pt doing well overall. Quality of gait with SPC improving, although still antalgic. Continue to focus on knee ROM and strengthening, gait, and balance. Physical Therapy Plan Frequency and Duration Frequency of Treatment 2x/Week Plan of Care Start Date 09/15/23 Plan of Care End Date 11/16/23 Therapeutic Interventions Therapeutic Interventions Balance Training,Gait Training ,Home Exercise Program,Joint Mobilizations,Manual Therapy, Neuromuscular Re-education, Patient/Caregiver Education, Self-Care/Home Management,Soft Tissue Mobilization, Therapeutic Activities, Therapeutic Exercises Modalities Cold Pack/Ice Massage,Electric Stimulation,Hot Packs, Ultrasound Next Visit Focus/Plan Next Note Type Treatment Note Next Visit Plan ROM, strengthening, gait training
--- NOTE | 2023-10-15 12:32 | PT.OTN ---
Current Diagnoses Unilateral primary osteoarthritis, left knee (10/15/23) Physical Therapy Treatment Note PT-OP-A Visit Information Start: 09/15/23 13:36 Freq: Status: Active Protocol: Document 10/15/23 11:20 (Rec: 10/15/23 12:31 [id number]) Out-Patient Physical Therapy Visit Information Visit Information Visit Type Treatment Note Visit Start Time 11:17 Visit Stop Time 12:00 Total Visit Minutes 43 Visit Number 7 Number of MARBLE INSTALLATION HELPER Visits 1 PT-OP-B Current Condition Start: 09/15/23 13:36 Freq: Status: Active Protocol: Document 09/15/23 11:15 DCW (Rec: 09/15/23 16:34 DCW [id number]) Current Condition History of Current Condition Onset Date 09/08/23 Current Complaints S/p left TKA History of Current Condition Pt attends his initial physical therapy evaluation one week s/p left TKA. Pt reports he underwent a right TKA in 2016, and notes that he didn't get to where they wanted me, but there was a lot more trauma to that knee over the years. Still limited significantly with right leg ROM, but was able to return to playing racquetball and pickle ball, which are his preferred hobbies, and would like to get back to them again following this most recent knee replacement. Notes pain is a 5/10 when I use it, but I can get it into comfortable positions and sleep pretty easily. PT-OP-C Subjective Start: 09/15/23 13:36 Freq: Status: Active Protocol: Document 10/15/23 11:20 SW (Rec: 10/15/23 12:31 [id number]) OP-PT Subjective Patient Comments Patient Comments Pt reports bilateral back pain lumbar area, spasming. Left side has spasmed since operation, now it is both sides, plans to followup at doctor appointment coming up. PT-OP-E Functional Tests Start: 09/15/23 13:36 Freq: Status: Active Protocol: Document 09/15/23 11:15 DCW (Rec: 09/15/23 13:45 DCW [id number]) Functional Tests 2 Minute Walk Test Distance 254' Device Used FWW Comments 2.11 ft/sec 30 Second Sit to Stand Test Score x9 repetitions Timed Up and Go (TUG) Score 12.73 /c FWW Comments Three-trial Average (13.35, 14 .45, 11.46) TUG Impairment Rating 20 to <40% Impaired (Score 12- 13) PT-OP-K Range of Motion Start: 09/15/23 13:36 Freq: Status: Active Protocol: Document 09/15/23 11:15 DCW (Rec: 09/15/23 13:40 DCW [id number]) Knee Goniometric Range of Motion Knee Right Knee ROM WFL No Patient Position Supine Flexion Active (degrees) 102 Extension Active (degrees) 5 Comments 6? extension lag Left Knee ROM WFL No Patient Position Supine Flexion Active (degrees) 99 Extension Active (degrees) 12 Comments 20? extension lag PT-OP-Q Treatments Start: 09/15/23 13:36 Freq: Status: Active Protocol: Document 10/15/23 11:20 SW (Rec: 10/15/23 12:31 SW [id number]) Cardio Equipment Recumbent Bicycle Duration (Minutes) 7 Resistance 4 Seat Position 6 Therapeutic Exercises Supine Exercises Knee Ext Supine Exercise Name low load long, duration ext stretch Side left Resistance 5# Equipment Used Bolster elevating L heel Reps/Minutes x 5 min Sitting Exercises HS stretch Sitting Exercise Name HS stretch Side bilateral Reps/Minutes 3x30 Comments cues for postural alignment with stretch LAQ Sitting Exercise Name LAQ Equipment Used level 1 TB Reps/Minutes x5 Comments mm fatigue compensation at hip , dsct'd d/t compensation with fatigue Standing Exercises Calf stretch Standing Exercise Name Gastroc stretch Side bilateral Equipment Used at wall Reps/Minutes 3x30 Step up Standing Exercise Name Step-up Side bilateral Equipment Used 6 step TKE Standing Exercise Name TKE Side bilateral Resistance Lv 3 Flexion Stretch Standing Exercise Name Seated flexion stretch Side bilateral Reps/Minutes 3x30 Comments seated for HEP d/t pt does not have stairs available for stretch Self-Care/Home Management Treatment Education Patient Education Home Exercise Program,Posture, Safety Other Education Educated patient on HEP, discussed importance of warming up prior to stretching . Reviewed HEP exercises for correct execution and safety. Educated patient on compensations during gait and with movements. PT-OP-T Assessment and Plan Start: 09/15/23 13:36 Freq: Status: Active Protocol: Document 10/15/23 11:20 SW (Rec: 10/15/23 12:31 SW [id number]) Physical Therapy Assessment Goals Two Impairment Significantly limited left knee ROM 12?-99? Usp Goal (LTG) Increase left knee ROM to 0? extension and >120? flexion [facility] and [facility] ability to enter house with one JUSTIN LTG Duration 11/16/23 One Impairment Pt does not have an appropriate home exercise program Short Term Goal (STG) Pt to be independent and compliant with an appropriate HEP STG Duration 10/16/23 Assessment Summary Assessment Pt reports he is off PT for the next 3 weeks, reviewed HEP exercises (re-issued HOs), pt correctly demonstrated and verbal understanding of correct execution and acknowledged the importance of carryover between sessions. Pt required min verbal cues for alignment of LE during exercises today. Physical Therapy Plan Frequency and Duration Frequency of Treatment 2x/Week Plan of Care Start Date 09/15/23 Plan of Care End Date 11/16/23 Therapeutic Interventions Therapeutic Interventions Balance Training,Gait Training ,Home Exercise Program,Joint Mobilizations,Manual Therapy, Neuromuscular Re-education, Patient/Caregiver Education, Self-Care/Home Management,Soft Tissue Mobilization, Therapeutic Activities, Therapeutic Exercises Modalities Cold Pack/Ice Massage,Electric Stimulation,Hot Packs, Ultrasound Next Visit Focus/Plan Next Note Type Treatment Note Next Visit Plan ROM, strengthening, gait training
--- NOTE | 2023-10-29 14:46 | PT.OTN ---
Current Diagnoses Unilateral primary osteoarthritis, left knee (10/29/23) Physical Therapy Treatment Note PT-OP-A Visit Information Start: 09/15/23 13:36 Freq: Status: Active Protocol: Document 10/29/23 13:58 (Rec: 10/29/23 14:46 [id number]) Out-Patient Physical Therapy Visit Information Visit Information Visit Start Time 13:50 Visit Stop Time 14:30 Visit Number 8 Number of AGRICULTURAL SPECIALIST Visits 2 PT-OP-B Current Condition Start: 09/15/23 13:36 Freq: Status: Active Protocol: Document 09/15/23 11:15 DCW (Rec: 09/15/23 16:34 DCW [id number]) Current Condition History of Current Condition Onset Date 09/08/23 Current Complaints S/p left TKA History of Current Condition Pt attends his initial physical therapy evaluation one week s/p left TKA. Pt reports he underwent a right TKA in 2016, and notes that he didn't get to where they wanted me, but there was a lot more trauma to that knee over the years. Still limited significantly with right leg ROM, but was able to return to playing racquetball and pickle ball, which are his preferred hobbies, and would like to get back to them again following this most recent knee replacement. Notes pain is a 5/10 when I use it, but I can get it into comfortable positions and sleep pretty easily. PT-OP-C Subjective Start: 09/15/23 13:36 Freq: Status: Active Protocol: Document 10/29/23 13:58 (Rec: 10/29/23 14:46 [id number]) OP-PT Subjective Patient Comments Patient Comments Doctor approved pt to play pickleball in a month. Pt reports not as motivated at home as in PT with exercises. PT-OP-E Functional Tests Start: 09/15/23 13:36 Freq: Status: Active Protocol: Document 09/15/23 11:15 DCW (Rec: 09/15/23 13:45 DCW [id number]) Functional Tests 2 Minute Walk Test Distance 254' Device Used FWW Comments 2.11 ft/sec 30 Second Sit to Stand Test Score x9 repetitions Timed Up and Go (TUG) Score 12.73 /c FWW Comments Three-trial Average (13.35, 14 .45, 11.46) TUG Impairment Rating 20 to <40% Impaired (Score 12- 13) PT-OP-K Range of Motion Start: 09/15/23 13:36 Freq: Status: Active Protocol: Document 09/15/23 11:15 DCW (Rec: 09/15/23 13:40 DCW [id number]) Knee Goniometric Range of Motion Knee Right Knee ROM WFL No Patient Position Supine Flexion Active (degrees) 102 Extension Active (degrees) 5 Comments 6? extension lag Left Knee ROM WFL No Patient Position Supine Flexion Active (degrees) 99 Extension Active (degrees) 12 Comments 20? extension lag PT-OP-Q Treatments Start: 09/15/23 13:36 Freq: Status: Active Protocol: Document 10/29/23 13:58 SW (Rec: 10/29/23 14:46 SW [id number]) Therapeutic Exercises Supine Exercises Knee Ext Supine Exercise Name low load long, duration ext stretch Side left Resistance 7# Equipment Used Bolster elevating L heel Reps/Minutes x 5 min Comments w/ intermittent quad contraction Standing Exercises mini squat Standing Exercise Name Mini squat Side bilateral Resistance AROM Calf stretch Standing Exercise Name Gastroc stretch Side bilateral Equipment Used at wall Reps/Minutes 3x30 Step up Standing Exercise Name Step-up Side bilateral Equipment Used 6 step Flexion Stretch Standing Exercise Name Step/Seated flexion stretch Side bilateral Reps/Minutes 3x30 Comments seated for HEP d/t pt does not have stairs available for stretch Other Exercises sit to stand Other Exercise Name sit to stand Side bilateral Reps/Minutes 2x10 Comments cue for equal weight bearing, eccentric control Neuro Re-Education Treatment Balance Activities static Details NBOS,Tandem,SLS Surface stable Comments Left SLS w/ R gentle toe touch for for extra feedback, 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 Tandem pt able to hold with min TURNSTILE COLLECTOR. PT-OP-T Assessment and Plan Start: 09/15/23 13:36 Freq: Status: Active Protocol: Document 10/29/23 13:58 SW (Rec: 10/29/23 14:46 SW [id number]) Physical Therapy Assessment Goals Two Impairment Significantly limited left knee ROM 12?-99? Motorcycle Engine Assembler Goal (LTG) Increase left knee ROM to 0? extension and >120? flexion in [facility] and improve ability to enter house with one JUSTIN LTG Duration 11/16/23 One Impairment Pt does not have an appropriate home exercise program Short Term Goal (STG) Pt to be independent and compliant with an appropriate HEP STG Duration 10/16/23 Assessment Summary Assessment Continued strengthening exercises and stretching toward pt goals. Progressed functional strength this session. Initiated SLS/NBOS balance this session to further progress pt strength/ proprioceptive feedback in LLE for carryover to pt gait. Physical Therapy Plan Frequency and Duration Frequency of Treatment 2x/Week Plan of Care Start Date 09/15/23 Plan of Care End Date 11/16/23 Therapeutic Interventions Therapeutic Interventions Balance Training,Gait Training ,Home Exercise Program,Joint Mobilizations,Manual Therapy, Neuromuscular Re-education, Patient/Caregiver Education, Self-Care/Home Management,Soft Tissue Mobilization, Therapeutic Activities, Therapeutic Exercises Modalities Cold Pack/Ice Massage,Electric Stimulation,Hot Packs, Ultrasound Next Visit Focus/Plan Next Note Type Treatment Note Next Visit Plan ROM, strengthening, gait training
--- NOTE | 2023-11-03 14:32 | PT.OTN ---
Current Diagnoses Unilateral primary osteoarthritis, left knee (11/03/23) Physical Therapy Treatment Note PT-OP-A Visit Information Start: 09/15/23 13:36 Freq: Status: Active Protocol: Document 11/03/23 13:47 SP (Rec: 11/03/23 14:35 SP [id number]) Out-Patient Physical Therapy Visit Information Visit Information Visit Type Treatment Note Visit Start Time 13:47 Visit Stop Time 14:32 Visit Number 9 Number of PEST CONTROL APPLICATOR Visits 3 Evaluation Information Evaluation Date 09/15/23 PT-OP-B Current Condition Start: 09/15/23 13:36 Freq: Status: Active Protocol: Document 09/15/23 11:15 DCW (Rec: 09/15/23 16:34 DCW [id number]) Current Condition History of Current Condition Onset Date 09/08/23 Current Complaints S/p left TKA History of Current Condition Pt attends his initial physical therapy evaluation one week s/p left TKA. Pt reports he underwent a right TKA in 2016, and notes that he didn't get to where they wanted me, but there was a lot more trauma to that knee over the years. Still limited significantly with right leg ROM, but was able to return to playing racquetball and pickle ball, which are his preferred hobbies, and would like to get back to them again following this most recent knee replacement. Notes pain is a 5/10 when I use it, but I can get it into comfortable positions and sleep pretty easily. PT-OP-C Subjective Start: 09/15/23 13:36 Freq: Status: Active Protocol: Document 11/03/23 13:47 SP (Rec: 11/03/23 14:35 SP [id number]) OP-PT Subjective Patient Comments Patient Comments Pt reports did ok after last tx. Saw Doc on 15 and pleased with ROM. PT-OP-E Functional Tests Start: 09/15/23 13:36 Freq: Status: Active Protocol: Document 09/15/23 11:15 DCW (Rec: 09/15/23 13:45 DCW [id number]) Functional Tests 2 Minute Walk Test Distance 254' Device Used FWW Comments 2.11 ft/sec 30 Second Sit to Stand Test Score x9 repetitions Timed Up and Go (TUG) Score 12.73 /c FWW Comments Three-trial Average (13.35, 14 .45, 11.46) TUG Impairment Rating 20 to <40% Impaired (Score 12- 13) PT-OP-K Range of Motion Start: 09/15/23 13:36 Freq: Status: Active Protocol: Document 11/03/23 13:47 SP (Rec: 11/03/23 14:35 SP [id number]) Knee Goniometric Range of Motion Knee Right Knee ROM WFL No Patient Position Supine Flexion Active (degrees) 108 Flexion Passive (degrees) 114 Extension Active (degrees) 5 Comments AROM R knee: Flex 109deg, gain of 6 deg Ext same 5 deg, quad set 3-4 deg. PROM flexion 114 deg Left Knee ROM WFL No Patient Position Supine Flexion Active (degrees) 118 Flexion Passive (degrees) 118 Extension Active (degrees) 9 Comments L knee AROM AROM flex 118deg, gain 19 deg Ext 9 deg> 6 deg Quad set PT-OP-Q Treatments Start: 09/15/23 13:36 Freq: Status: Active Protocol: Document 11/03/23 13:47 SP (Rec: 11/03/23 14:35 SP [id number]) Cardio Equipment Recumbent Stepper (Sci-Fit) Duration (Minutes) 2 Resistance 4 Seat Position 12 Recumbent Bicycle Duration (Minutes) 6 Resistance 4 Seat Position 9>6 Other full revolution Gym Equipment Shuttle Recovery unilateral squat Details unlocked/wedge closer by 2 Resistance 37 # dark navy Reps/Time x10 (R flexion 112, L flexion 108- opp duff touch platform Bilateral Squats Details Wedge closer Resistance 50# (new bands) Shuttle Recovery Platform Stable Reps/Time AROM tolerate, 10 reps warm up ROM Therapeutic Exercises Standing Exercises side stepping Standing Exercise Name in PT Resistance arom, TB #2 mid duff Reps/Minutes 20 ft x2 laps each Comments elongate posture, eccentric control mini squat Standing Exercise Name Mini squat Side bilateral Resistance AROM Reps/Minutes near rail x5 reps Comments cues TKE, hip hinge like lift PT-OP-T Assessment and Plan Start: 09/15/23 13:36 Freq: Status: Active Protocol: Document 11/03/23 13:47 SP (Rec: 11/03/23 14:35 SP [id number]) Physical Therapy Assessment Goals Two Impairment Significantly limited left knee ROM 12?-99? Health Careers Instructor Goal (LTG) Increase left knee ROM to 0? extension and >120? flexion in [facility] and improve ability to enter house with one JUSTIN LTG Duration 11/16/23 One Impairment Pt does not have an appropriate home exercise program Short Term Goal (STG) Pt to be independent and compliant with an appropriate HEP STG Duration 10/16/23 Progress Towards Goals Progress Comments L knee AROM AROM flex 118deg, gain 19 deg Ext 9 deg> 6 deg Quad set AROM R knee: Flex 109deg, gain of 6 deg Ext same 5 deg, quad set 3-4 deg. PROM flexion 114 deg Assessment Summary Assessment Pt making gains in B knee AROM , tolerated resisted assist on shuttle press with no adverse affects. Cues for TKE best can during standing ther ex, good hip abd tiring to support more lateral stability gait end tx. Physical Therapy Plan Frequency and Duration Frequency of Treatment 2x/Week Plan of Care Start Date 09/15/23 Plan of Care End Date 11/16/23 Therapeutic Interventions Therapeutic Interventions Balance Training,Gait Training ,Home Exercise Program,Joint Mobilizations,Manual Therapy, Neuromuscular Re-education, Patient/Caregiver Education, Self-Care/Home Management,Soft Tissue Mobilization, Therapeutic Activities, Therapeutic Exercises Modalities Cold Pack/Ice Massage,Electric Stimulation,Hot Packs, Ultrasound Next Visit Focus/Plan Next Note Type Treatment Note Next Visit Plan Assess response to shuttle recovery, standing ex added last tx. POC: ROM, strengthening, gait training
--- NOTE | 2023-11-05 16:29 | PT.OTN ---
Current Diagnoses Unilateral primary osteoarthritis, left knee (11/05/23) Physical Therapy Treatment Note PT-OP-A Visit Information Start: 09/15/23 13:36 Freq: Status: Active Protocol: Document 11/05/23 13:53 (Rec: 11/05/23 14:31 [id number]) Out-Patient Physical Therapy Visit Information Visit Information Visit Type Treatment Note Visit Start Time 13:46 Visit Stop Time 14:26 Visit Number 10 Number of FIREWORKS MAKER Visits 4 PT-OP-B Current Condition Start: 09/15/23 13:36 Freq: Status: Active Protocol: Document 09/15/23 11:15 DCW (Rec: 09/15/23 16:34 DCW [id number]) Current Condition History of Current Condition Onset Date 09/08/23 Current Complaints S/p left TKA History of Current Condition Pt attends his initial physical therapy evaluation one week s/p left TKA. Pt reports he underwent a right TKA in 2016, and notes that he didn't get to where they wanted me, but there was a lot more trauma to that knee over the years. Still limited significantly with right leg ROM, but was able to return to playing racque[employer]inema One[employer] and pickle ball, which are his preferred hobbies, and would like to get back to them again following this most recent knee replacement. Notes pain is a 5/10 when I use it, but I can get it into comfortable positions and sleep pretty easily. PT-OP-C Subjective Start: 09/15/23 13:36 Freq: Status: Active Protocol: Document 11/05/23 13:53 (Rec: 11/05/23 14:31 [id number]) OP-PT Subjective Patient Comments Patient Comments Pt reports no changes to report today. PT-OP-E Functional Tests Start: 09/15/23 13:36 Freq: Status: Active Protocol: Document 09/15/23 11:15 DCW (Rec: 09/15/23 13:45 DCW [id number]) Functional Tests 2 Minute Walk Test Distance 254' Device Used FWW Comments 2.11 ft/sec 30 Second Sit to Stand Test Score x9 repetitions Timed Up and Go (TUG) Score 12.73 /c FWW Comments Three-trial Average (13.35, 14 .45, 11.46) TUG Impairment Rating 20 to <40% Impaired (Score 12- 13) PT-OP-K Range of Motion Start: 09/15/23 13:36 Freq: Status: Active Protocol: Document 11/03/23 13:47 SP (Rec: 11/03/23 14:35 SP [id number]) Knee Goniometric Range of Motion Knee Right Knee ROM WFL No Patient Position Supine Flexion Active (degrees) 108 Flexion Passive (degrees) 114 Extension Active (degrees) 5 Comments AROM R knee: Flex 109deg, gain of 6 deg Ext same 5 deg, quad set 3-4 deg. PROM flexion 114 deg Left Knee ROM WFL No Patient Position Supine Flexion Active (degrees) 118 Flexion Passive (degrees) 118 Extension Active (degrees) 9 Comments L knee AROM AROM flex 118deg, gain 19 deg Ext 9 deg> 6 deg Quad set PT-OP-Q Treatments Start: 09/15/23 13:36 Freq: Status: Active Protocol: Document 11/05/23 13:53 SW (Rec: 11/05/23 14:31 SW [id number]) Cardio Equipment Recumbent Bicycle Duration (Minutes) 7 Resistance 4 Seat Position 7>6 Other full revolution Gym Equipment Shuttle Recovery unilateral squat Details cued for hip compensation Resistance 37 # dark navy Reps/Time x10 Bilateral Squats Details cued for hip compensation Resistance 50# (new bands) Shuttle Recovery Platform Stable Reps/Time AROM tolerate, 10 reps warm up ROM Therapeutic Exercises Standing Exercises side stepping Standing Exercise Name in PT Resistance arom, TB #2 mid duff Reps/Minutes 20 ft x2 laps each Comments elongate posture, eccentric control mini squat Standing Exercise Name Mini squat Side bilateral Resistance AROM Reps/Minutes near rail x5 reps Comments cues TKE, hip hinge like lift Therapeutic Activity Therapeutic Activity Vitals Name Vitals Comments BP 143/81 SaO2 97% HR 91 PT-OP-T Assessment and Plan Start: 09/15/23 13:36 Freq: Status: Active Protocol: Document 11/05/23 13:53 SW (Rec: 11/05/23 14:31 SW [id number]) Physical Therapy Assessment Goals Two Impairment Significantly limited left knee ROM 12?-99? Blind Aide Goal (LTG) Increase left knee ROM to 0? extension and >120? flexion [facility] to enter house with one JUSTIN LTG Duration 11/16/23 One Impairment Pt does not have an appropriate home exercise program Short Term Goal (STG) Pt to be independent and compliant with an appropriate HEP STG Duration 10/16/23 Assessment Summary Assessment Continued strengthening/ROM exercises this session toward pt goals. Pt required verbal/ tactile cues during shuttle press knee flex stretch to decrease hip ER compensation and keep LLE in alignment. Pt reported dizziness during standing exercise today, checked pt vitals, continued to monitor pt throughout session. Patient reported having issues recently with dizziness, difficulty describing how he has been feeling, encouraged pt to contact PCP to discuss symptoms. Physical Therapy Plan Frequency and Duration Frequency of Treatment 2x/Week Plan of Care Start Date 09/15/23 Plan of Care End Date 11/16/23 Therapeutic Interventions Therapeutic Interventions Balance Training,Gait Training ,Home Exercise Program,Joint Mobilizations,Manual Therapy, Neuromuscular Re-education, Patient/Caregiver Education, Self-Care/Home Management,Soft Tissue Mobilization, Therapeutic Activities, Therapeutic Exercises Modalities Cold Pack/Ice Massage,Electric Stimulation,Hot Packs, Ultrasound Next Visit Focus/Plan Next Note Type Treatment Note Next Visit Plan Assess response to shuttle recovery, standing ex added last tx. POC: ROM, strengthening, gait training
--- NOTE | 2023-11-11 15:17 | PT.OTN ---
Current Diagnoses Unilateral primary osteoarthritis, left knee (11/11/23) Physical Therapy Treatment Note PT-OP-A Visit Information Start: 09/15/23 13:36 Freq: Status: Active Protocol: Document 11/11/23 14:35 DCW (Rec: 11/11/23 15:16 DCW [id number]) Out-Patient Physical Therapy Visit Information Visit Information Visit Type Progress Note Visit Start Time 14:35 Visit Stop Time 15:15 Visit Number 11 Number of NURSE LIAISON Visits 0 Evaluation Information Evaluation Date 09/15/23 PT-OP-B Current Condition Start: 09/15/23 13:36 Freq: Status: Active Protocol: Document 09/15/23 11:15 DCW (Rec: 09/15/23 16:34 DCW [id number]) Current Condition History of Current Condition Onset Date 09/08/23 Current Complaints S/p left TKA History of Current Condition Pt attends his initial physical therapy evaluation one week s/p left TKA. Pt reports he underwent a right TKA in 2016, and notes that he didn't get to where they wanted me, but there was a lot more trauma to that knee over the years. Still limited significantly with right leg ROM, but was able to return to playing racquetball and pickle ball, which are his preferred hobbies, and would like to get back to them again following this most recent knee replacement. Notes pain is a 5/10 when I use it, but I can get it into comfortable positions and sleep pretty easily. PT-OP-C Subjective Start: 09/15/23 13:36 Freq: Status: Active Protocol: Document 11/11/23 14:35 DCW (Rec: 11/11/23 15:16 DCW [id number]) OP-PT Subjective Patient Comments Patient Comments I'm not allowed to play pickleball until the 15th. PT-OP-E Functional Tests Start: 09/15/23 13:36 Freq: Status: Active Protocol: Document 11/11/23 14:35 DCW (Rec: 11/11/23 14:58 DCW [id number]) Functional Tests 6 Minute Walk Test Distance 1420' Device Used none Comments 3.94 ft/sec 30 Second Sit to Stand Test Score x11 repetitions Timed Up and Go (TUG) Score 8.37 Comments Three-trial Average (8.82, 8. 61, 7.69) TUG Impairment Rating 20 to <40% Impaired (Score 12- 13) PT-OP-K Range of Motion Start: 09/15/23 13:36 Freq: Status: Active Protocol: Document 11/11/23 14:35 DCW (Rec: 11/11/23 14:58 DCW [id number]) Knee Goniometric Range of Motion Knee Right Knee ROM WFL No Patient Position Supine Flexion Active (degrees) 108 Flexion Passive (degrees) 114 Extension Active (degrees) 5 Left Knee ROM WFL No Patient Position Supine Flexion Active (degrees) 118 Flexion Passive (degrees) 118 Extension Active (degrees) 6 Comments 6? extension lag PT-OP-Q Treatments Start: 09/15/23 13:36 Freq: Status: Active Protocol: Document 11/11/23 14:35 DCW (Rec: 11/11/23 15:16 DCW [id number]) Manual Therapy Treatment Joint Mobilizations Knee Joint B Knee Direction A<->P Grade III Body Position Hooklying PT-OP-T Assessment and Plan Start: 09/15/23 13:36 Freq: Status: Active Protocol: Document 11/11/23 14:35 DCW (Rec: 11/11/23 15:16 DCW [id number]) Physical Therapy Assessment Goals Two Impairment Significantly limited left knee ROM 12?-99? Skilled Nursing Goal (LTG) Increase left knee ROM to 0? extension and >120? flexion [facility] ability to enter house with one JUSTIN LTG Duration 12/27/23 - Improving One Impairment Pt does not have an appropriate home exercise program Short Term Goal (STG) Pt to be independent and compliant with an appropriate HEP STG Duration 12/27/23 Assessment Summary Assessment Pt making great progress with gait, stability, and functional mobility. Substantial improvements in 30sStS, TUG, and 6MWT. Pt does still presents with limitations in B knee joint ROM. Should benefit from continued skilled therapy focusing on aggressive stretching/flexibility and joint mobilizations in an effort to continue improvement of specifically left knee ROM s/p TKA. Physical Therapy Plan Frequency and Duration Frequency of Treatment 2x/Week Plan of Care Start Date 11/11/23 Plan of Care End Date 12/27/23 Therapeutic Interventions Therapeutic Interventions Balance Training,Gait Training ,Home Exercise Program,Joint Mobilizations,Manual Therapy, Neuromuscular Re-education, Patient/Caregiver Education, Self-Care/Home Management,Soft Tissue Mobilization, Therapeutic Activities, Therapeutic Exercises Modalities Cold Pack/Ice Massage,Electric Stimulation,Hot Packs, Ultrasound Next Visit Focus/Plan Next Note Type Treatment Note Next Visit Plan Assess response to shuttle recovery, standing ex added last tx. POC: ROM, strengthening, gait training
--- NOTE | 2023-11-11 15:17 | PT.OPPOC ---
Physical, Occupational & Speech Therapy At [facility] Current Diagnoses Unilateral primary osteoarthritis, left knee (11/11/23) Visit Care Team Role Provider Type Phuc Rea MD Family Provider Non-Staff Primary Care Provider Specialty: Internal Medicine Address: [address] [place], [address] Email: Pastora Ochoa PA-C Attending Provider Non-Staff Referring Provider Specialty: Medical Address: [address] [place] [address], [phone] Email: Plan Of Care PT-OP-T Assessment and Plan Start: 09/15/23 13:36 Freq: Status: Active Protocol: Document 11/11/23 14:35 DCW (Rec: 11/11/23 15:16 DCW [id number]) Physical Therapy Assessment Goals Two Impairment Significantly limited left knee ROM 12?-99? Manager Shift Goal (LTG) Increase left knee ROM to 0? extension and >120? flexion in order to [facility] and improve ability to enter house with one JUSTIN LTG Duration 12/27/23 - Improving One Impairment Pt does not have an appropriate home exercise program Short Term Goal (STG) Pt to be independent and compliant with an appropriate HEP STG Duration 12/27/23 Assessment Summary Assessment Pt making great progress with gait, stability, and functional mobility. Substantial improvements in 30sStS, TUG, and 6MWT. Pt does still presents with limitations in B knee joint ROM. Should benefit from continued skilled therapy focusing on aggressive stretching/flexibility and joint mobilizations in an effort to continue improvement of specifically left knee ROM s/p TKA. Physical Therapy Plan Frequency and Duration Frequency of Treatment 2x/Week Plan of Care Start Date 11/11/23 Plan of Care End Date 12/27/23 Therapeutic Interventions Therapeutic Interventions Balance Training,Gait Training ,Home Exercise Program,Joint Mobilizations,Manual Therapy, Neuromuscular Re-education, Patient/Caregiver Education, Self-Care/Home Management,Soft Tissue Mobilization, Therapeutic Activities, Therapeutic Exercises Modalities Cold Pack/Ice Massage,Electric Stimulation,Hot Packs, Ultrasound Next Visit Focus/Plan Next Note Type Treatment Note Next Visit Plan Assess response to shuttle recovery, standing ex added last tx. POC: ROM, strengthening, gait training Plan of Care Dates Plan of Care Start Date 11/11/23 Plan of Care End Date 12/27/23 Electronically Signed by: Edis Epstein, PT 11/11/23 4379 If you are in agreement with this Plan of Care, please return a signed and dated copy. I have reviewed this Plan of Care and certify that the skilled therapy services above are required to meet the patient?s needs. Physician Signature Date Printed Name and Credentials Clinical Instructor Signature Printed Name and Credentials
--- NOTE | 2023-11-16 15:13 | PT.OTN ---
Current Diagnoses Unilateral primary osteoarthritis, left knee (11/16/23) Physical Therapy Treatment Note PT-OP-A Visit Information Start: 09/15/23 13:36 Freq: Status: Active Protocol: Document 11/16/23 14:30 DCW (Rec: 11/16/23 15:13 DCW [id number]) Out-Patient Physical Therapy Visit Information Visit Information Visit Type Treatment Note Visit Start Time 14:30 Visit Stop Time 15:15 Visit Number 12 Number of STRAWHAT BLOCKING OPERATOR Visits 0 Evaluation Information Evaluation Date 09/15/23 PT-OP-B Current Condition Start: 09/15/23 13:36 Freq: Status: Active Protocol: Document 09/15/23 11:15 DCW (Rec: 09/15/23 16:34 DCW [id number]) Current Condition History of Current Condition Onset Date 09/08/23 Current Complaints S/p left TKA History of Current Condition Pt attends his initial physical therapy evaluation one week s/p left TKA. Pt reports he underwent a right TKA in 2016, and notes that he didn't get to where they wanted me, but there was a lot more trauma to that knee over the years. Still limited significantly with right leg ROM, but was able to return to playing [employer] and pickle ball, which are his preferred hobbies, and would like to get back to them again following this most recent knee replacement. Notes pain is a 5/10 when I use it, but I can get it into comfortable positions and sleep pretty easily. PT-OP-C Subjective Start: 09/15/23 13:36 Freq: Status: Active Protocol: Document 11/16/23 14:30 DCW (Rec: 11/16/23 15:13 DCW [id number]) OP-PT Subjective Patient Comments Patient Comments It was hurting a little bit this morning, but not too bad. PT-OP-E Functional Tests Start: 09/15/23 13:36 Freq: Status: Active Protocol: Document 11/11/23 14:35 DCW (Rec: 11/11/23 14:58 DCW [id number]) Functional Tests 6 Minute Walk Test Distance 1420' Device Used none Comments 3.94 ft/sec 30 Second Sit to Stand Test Score x11 repetitions Timed Up and Go (TUG) Score 8.37 Comments Three-trial Average (8.82, 8. 61, 7.69) TUG Impairment Rating 20 to <40% Impaired (Score 12- 13) PT-OP-K Range of Motion Start: 09/15/23 13:36 Freq: Status: Active Protocol: Document 11/11/23 14:35 DCW (Rec: 11/11/23 14:58 DCW [id number]) Knee Goniometric Range of Motion Knee Right Knee ROM WFL No Patient Position Supine Flexion Active (degrees) 108 Flexion Passive (degrees) 114 Extension Active (degrees) 5 Left Knee ROM WFL No Patient Position Supine Flexion Active (degrees) 118 Flexion Passive (degrees) 118 Extension Active (degrees) 6 Comments 6? extension lag PT-OP-Q Treatments Start: 09/15/23 13:36 Freq: Status: Active Protocol: Document 11/16/23 14:30 DCW (Rec: 11/16/23 15:13 DCW [id number]) Cardio Equipment Recumbent Bicycle Duration (Minutes) 8 Resistance 4 Seat Position 10->8->5 Gym Equipment Cable Column (Body Solid) Leg Curl Resistance 30# Leg Extension Resistance 20# Shuttle Recovery unilateral squat Resistance 37# (one new) Reps/Time x15 Bilateral Squats Resistance 62# (two new) Shuttle Recovery Platform Stable Reps/Time x15 Therapeutic Exercises Sitting Exercises HS stretch Sitting Exercise Name HS stretch Side bilateral Reps/Minutes 3x30 Comments cues for postural alignment with stretch Standing Exercises Hip Extension Standing Exercise Name Hip Extension Side bilateral Resistance Green loop side stepping Resistance Green Equipment Used // bars Reps/Minutes 20 ft x2 laps each Comments elongate posture, eccentric control TKE Standing Exercise Name TKE Side bilateral Resistance Lv 3 PT-OP-T Assessment and Plan Start: 09/15/23 13:36 Freq: Status: Active Protocol: Document 11/16/23 14:30 DCW (Rec: 11/16/23 15:13 DCW [id number]) Physical Therapy Assessment Impairments Impairments Activity Tolerance,Functional Activities,Gait,ROM,Soft Tissue Mobility,Strength,Tone Goals Two Impairment Significantly limited left knee ROM 12?-99? Mcfp Goal (LTG) Increase left knee ROM to 0? extension and >120? flexion in [facility] and improve ability to enter house with one JUSTIN LTG Duration 12/27/23 - Improving One Impairment Pt does not have an appropriate home exercise program Short Term Goal (STG) Pt to be independent and compliant with an appropriate HEP STG Duration 12/27/23 Assessment Summary Assessment After discussion following Prog note last week and thinking things over for the weekend, pt notes he would prefer to discharge following his next visit. Has family visiting afterwards and is then leaving the state for a few months. Pt demonstrated good understanding of HEP, today reviewed use of leg extension/curls on gym equipment. Physical Therapy Plan Frequency and Duration Frequency of Treatment 2x/Week Plan of Care Start Date 11/11/23 Plan of Care End Date 12/27/23 Therapeutic Interventions Therapeutic Interventions Balance Training,Gait Training ,Home Exercise Program,Joint Mobilizations,Manual Therapy, Neuromuscular Re-education, Patient/Caregiver Education, Self-Care/Home Management,Soft Tissue Mobilization, Therapeutic Activities, Therapeutic Exercises Modalities Cold Pack/Ice Massage,Electric Stimulation,Hot Packs, Ultrasound Next Visit Focus/Plan Next Note Type Discharge Summary Next Visit Plan Assess response to shuttle recovery, standing ex added last tx. POC: ROM, strengthening, gait training
--- NOTE | 2023-11-18 15:18 | PT.OTN ---
Current Diagnoses Unilateral primary osteoarthritis, left knee (11/18/23) Physical Therapy Treatment Note PT-OP-A Visit Information Start: 09/15/23 13:36 Freq: Status: Active Protocol: Document 11/18/23 14:38 SP (Rec: 11/18/23 15:31 SP [id number]) Out-Patient Physical Therapy Visit Information Visit Information Visit Type Treatment Note Visit Start Time 14:38 Visit Stop Time 15:18 Visit Number 13 Number of FAMILY NURSE PRACTITIONER Visits 1 Evaluation Information Evaluation Date 09/15/23 PT-OP-B Current Condition Start: 09/15/23 13:36 Freq: Status: Active Protocol: Document 09/15/23 11:15 DCW (Rec: 09/15/23 16:34 DCW [id number]) Current Condition History of Current Condition Onset Date 09/08/23 Current Complaints S/p left TKA History of Current Condition Pt attends his initial physical therapy evaluation one week s/p left TKA. Pt reports he underwent a right TKA in 2016, and notes that he didn't get to where they wanted me, but there was a lot more trauma to that knee over the years. Still limited significantly with right leg ROM, but was able to return to playing racquetball and pickle ball, which are his preferred hobbies, and would like to get back to them again following this most recent knee replacement. Notes pain is a 5/10 when I use it, but I can get it into comfortable positions and sleep pretty easily. PT-OP-C Subjective Start: 09/15/23 13:36 Freq: Status: Active Protocol: Document 11/18/23 14:38 SP (Rec: 11/18/23 15:31 SP [id number]) OP-PT Subjective Patient Comments Patient Comments Pt reports is his last tx before continues on his own. PT-OP-E Functional Tests Start: 09/15/23 13:36 Freq: Status: Active Protocol: Document 11/11/23 14:35 DCW (Rec: 11/11/23 14:58 DCW [id number]) Functional Tests 6 Minute Walk Test Distance 1420' Device Used none Comments 3.94 ft/sec 30 Second Sit to Stand Test Score x11 repetitions Timed Up and Go (TUG) Score 8.37 Comments Three-trial Average (8.82, 8. 61, 7.69) TUG Impairment Rating 20 to <40% Impaired (Score 12- 13) PT-OP-K Range of Motion Start: 09/15/23 13:36 Freq: Status: Active Protocol: Document 11/11/23 14:35 DCW (Rec: 11/11/23 14:58 DCW [id number]) Knee Goniometric Range of Motion Knee Right Knee ROM WFL No Patient Position Supine Flexion Active (degrees) 108 Flexion Passive (degrees) 114 Extension Active (degrees) 5 Left Knee ROM WFL No Patient Position Supine Flexion Active (degrees) 118 Flexion Passive (degrees) 118 Extension Active (degrees) 6 Comments 6? extension lag PT-OP-Q Treatments Start: 09/15/23 13:36 Freq: Status: Active Protocol: Document 11/18/23 14:38 SP (Rec: 11/18/23 15:31 SP [id number]) Gym Equipment Shuttle Recovery unilateral squat Resistance 37# (one new) Reps/Time x15 Bilateral Squats Resistance 62# (two new) Shuttle Recovery Platform Stable Reps/Time 20 Therapeutic Exercises Sitting Exercises HS stretch Sitting Exercise Name HS stretch- HEP reviewed Side bilateral Reps/Minutes 3x30 Comments cues upright back, hip hinge fwd- good stretch Standing Exercises Hip Extension Standing Exercise Name Hip Extension- added to HEP Side bilateral Resistance [place] loop at ankles Equipment Used BUE rail support Reps/Minutes 2x10 Comments Mod cues LLE, Max cues RLE: TKE & tall upright posturing side stepping Standing Exercise Name added to HEP Resistance [place] TB #3 at shins Equipment Used rail Reps/Minutes 15 ft x2 laps each Comments elongate posture, eccentric control mini squat Standing Exercise Name Mini squat Side bilateral Resistance AROM Equipment Used front chair Reps/Minutes 5 SH x5 reps hover 3 from chair seat Comments cues TKE ext, hover holds- good self wt shift stability needdd Calf stretch Standing Exercise Name Gastroc stretch Side bilateral Resistance contact rail/wall Equipment Used rolled towel under forefoot Reps/Minutes 3x30 SH Comments cued upright posture, TKE- good HS then calf stretch TKE Standing Exercise Name TKE Side bilateral Resistance Lv 4 dark navy blue Reps/Minutes 10SH x10 Comments HEP reviewed- anchors in door Other Exercises sit to stand Other Exercise Name sit to stand Side bilateral Reps/Minutes x5 reps warm up Comments cue for equal weight bearing, eccentric control PT-OP-T Assessment and Plan Start: 09/15/23 13:36 Freq: Status: Active Protocol: Document 11/18/23 14:38 SP (Rec: 11/18/23 15:31 SP [id number]) Physical Therapy Assessment Goals Two Impairment Significantly limited left knee ROM 12?-99? Airport Shuttle Driver Goal (LTG) Increase left knee ROM to 0? extension and >120? flexion in order to return to [employer] and improve ability to enter house with one JUSTIN 11/18/23: pt reports feels is ready to return to [employer] with slower pacing than past and does use light 1 UE on stairs. LTG Duration 12/27/23 - Improving One Impairment Pt does not have an appropriate home exercise program Short Term Goal (STG) Pt to be independent and compliant with an appropriate HEP 11/18/23: HEP reviewed: stretching calf/HS, STS/ hover mini squat, TKE #4, hip ext TB #3. STG Duration 12/27/23 progressing Assessment Summary Assessment Tx focused on HEP review and added in tx ther ex to HEP: resisted side steps and hip ext, requires cues for elevated posturing that pt states and daughter do give him feedback for corrections can assist him. Pt improved quad engagement during tx and increased knee extension and more elevated posturing during gait stance time leaving. Physical Therapy Plan Frequency and Duration Frequency of Treatment 2x/Week Plan of Care Start Date 11/11/23 Plan of Care End Date 12/27/23 Therapeutic Interventions Therapeutic Interventions Balance Training,Gait Training ,Home Exercise Program,Joint Mobilizations,Manual Therapy, Neuromuscular Re-education, Patient/Caregiver Education, Self-Care/Home Management,Soft Tissue Mobilization, Therapeutic Activities, Therapeutic Exercises Modalities Cold Pack/Ice Massage,Electric Stimulation,Hot Packs, Ultrasound Next Visit Focus/Plan Next Note Type Discharge Summary Next Visit Plan added ther ex performed in PT toHEP /c HOs, PT to complete DC, progress own HEP.
--- NOTE | 2023-11-19 14:34 | PT.OPDS ---
Current Diagnoses Unilateral primary osteoarthritis, left knee (11/18/23) Visit Care Team Role Provider Type Phuc Rea MD Family Provider Non-Staff Primary Care Provider Specialty: Internal Medicine Address: [address] [place] [address], [place], [address] Email: Pastora Ochoa PA-C Attending Provider Non-Staff Referring Provider Specialty: Medical Address: [address] [place] [address], [place], [phone] Email: Visit Number Visit Number 13 Discharge Summary PT-OP-B Current Condition Start: 09/15/23 13:36 Freq: Status: Active Protocol: Document 09/15/23 11:15 DCW (Rec: 09/15/23 16:34 DCW [id number]) Current Condition History of Current Condition Onset Date 09/08/23 Current Complaints S/p left TKA History of Current Condition Pt attends his initial physical therapy evaluation one week s/p left TKA. Pt reports he underwent a right TKA in 2017, and notes that he didn't get to where they wanted me, but there was a lot more trauma to that knee over the years. Still limited significantly with right leg ROM, but was able to return to playing racquetball and pickle ball, which are his preferred hobbies, and would like to get back to them again following this most recent knee replacement. Notes pain is a 5/10 when I use it, but I can get it into comfortable positions and sleep pretty easily. PT-OP-C Subjective Start: 09/15/23 13:36 Freq: Status: Active Protocol: Document 11/18/23 14:38 SP (Rec: 11/18/23 15:31 SP [id number]) OP-PT Subjective Patient Comments Patient Comments Pt reports is his last tx before continues on his own. PT-OP-E Functional Tests Start: 09/15/23 13:36 Freq: Status: Active Protocol: Document 11/11/23 14:35 DCW (Rec: 11/11/23 14:58 DCW [id number]) Functional Tests 6 Minute Walk Test Distance 1420' Device Used none Comments 3.94 ft/sec 30 Second Sit to Stand Test Score x11 repetitions Timed Up and Go (TUG) Score 8.37 Comments Three-trial Average (8.82, 8. 61, 7.69) TUG Impairment Rating 20 to <40% Impaired (Score 12- 13) PT-OP-K Range of Motion Start: 09/15/23 13:36 Freq: Status: Active Protocol: Document 11/11/23 14:35 DCW (Rec: 11/11/23 14:58 DCW [id number]) Knee Goniometric Range of Motion Knee Right Knee ROM WFL No Patient Position Supine Flexion Active (degrees) 108 Flexion Passive (degrees) 114 Extension Active (degrees) 5 Left Knee ROM WFL No Patient Position Supine Flexion Active (degrees) 118 Flexion Passive (degrees) 118 Extension Active (degrees) 6 Comments 6? extension lag PT-OP-T Assessment and Plan Start: 09/15/23 13:36 Freq: Status: Active Protocol: Document 11/19/23 14:33 DCW (Rec: 11/19/23 14:34 DCW [id number]) Physical Therapy Assessment Goals Two Impairment Significantly limited left knee ROM 12?-99? Supervisor Mail Carriers Goal (LTG) Increase left knee ROM to 0? extension and >120? flexion in order to return to [employer] and improve ability to enter house with one JUSTIN 11/18/23: pt reports feels is ready to return to racquetball with slower pacing than past and does use light 1 UE on stairs. LTG Duration 12/27/23 - Improving One Impairment Pt does not have an appropriate home exercise program Short Term Goal (STG) Pt to be independent and compliant with an appropriate HEP 11/18/23: HEP reviewed: stretching calf/HS, STS/ hover mini squat, TKE #4, hip ext TB #3. STG Duration 12/27/23 progressing Assessment Summary Assessment Pt feels comfortable with current level of function, and will be having family visit the next few weeks before leaving the state for multiple months. Pt will be discharged from skilled therapy at this time. Physical Therapy Plan Frequency and Duration Frequency of Treatment 2x/Week Plan of Care Start Date 11/11/23 Plan of Care End Date 12/27/23 Therapeutic Interventions Therapeutic Interventions Balance Training,Gait Training ,Home Exercise Program,Joint Mobilizations,Manual Therapy, Neuromuscular Re-education, Patient/Caregiver Education, Self-Care/Home Management,Soft Tissue Mobilization, Therapeutic Activities, Therapeutic Exercises Modalities Cold Pack/Ice Massage,Electric Stimulation,Hot Packs, Ultrasound Discharge Physical Therapy Discharge Reasons Patient Request Discharge Comments Discharge to independent [facility] Next Visit Focus/Plan Next Note Type Discharge Summary
== END 2023-11-24 09:26 | disposition home or self-care (01) ==
LOC: PHYS 14:30
PROVIDERS: Family Provider Internal Medicine; PCP Internal Medicine; Referring Provider Physician Assistant; Visit Provider Physician Assistant
DX: M17.12 Unilateral primary osteoarthritis, left knee (principal)
CPT/HCPCS: 97110; 97112; 97140; 97161; 97530; 97535

== ENCOUNTER 2024-10-24 11:46 | Day surgery (SDC) | payer MEDICARE, OTHER, SELFPAY ==
--- NOTE | 2024-10-24 | PATH_ITS ---
[facility] Accession Number: [id number] No. of containers..01 Tissue . 01 Material submitted: . colon - ASCENDING POLYP . 01 Diagnosis: ASCENDING POLYP: Tubular adenoma. STO 10/25/20241901 Local . 01 Electronically signed: . Hung Herndon MD, Pathologist NPI- [id number] . 01 Gross description: . ASCENDING POLYP: Received in formalin is 1 fragment(s) of barragan, soft tissue measuring 0.3 x 0.2 x 0.2 cm submitted entirely in 1 cassette(s) /NICO 10/25/20241901 Local . 01 Pathologist provided ICD-10: D12.2 . 01 CPT . 247225 Specimen Comment: A courtesy copy of this report has been sent to [facility] Pathology Performed at: [address] [facility] [id number] MD Hung Herndon MD Phone: [phone]
[2024-10-24 12:22] VITALS: BP 110/89; PULSE 88; RESP 14; TEMP 36.7; O2SAT 97
[2024-10-24] MEDS: SODIUM CHLORIDE 0.9% 1,000 ML 150 ML IV (12:32)
--- NOTE | 2024-10-24 12:44 | PM.HP.IH.1 ---
History of Present Illness History of Present Illness Date Patient Seen: 10/24/24 Time Patient Seen: 12:44 Chief complaint: Colonoscopy Narrative: 79-year-old white male with personal history of polyps presents for colon screening. PENDING SALE TO [facility] Medical History (Updated 10/24/24 @ 12:46 by Fede Lucas MD) Personal history of colonic polyps (~2018) Osteoarthritis Bursopathy Dysphagia Hyperlipemia Low testosterone Surgical History History of cataract removal with insertion of prosthetic lens History of right knee joint replacement History of colonoscopy H/O arthroscopic knee surgery H/O cataract extraction H/O total knee replacement Family History Father Hypertension Heart disease Diabetes mellitus Social History marital status: household members: spouse occupational status: previously employed Smoking Status: Never smoker alcohol intake: current substance use type: does not use Meds Home Medications and Allergies Home Medications Medication Instructions Recorded Confirmed Type testosterone cypionate 100 mg/mL 100 mg IM Q2W 10/11/18 10/24/24 History intramuscular oil (Depo-Testosterone) sodium,potassium,mag sulfates 17.5 See Rx Instructions PO .COMPLEX 10/11/24 Rx gram-3.13 gram-1.6 gram oral soln #354 mL (Suprep Bowel Prep Kit) Allergies Allergy/AdvReac Type Severity Reaction Status Date / Time Sulfa (Sulfonamide AdvReac unknown Verified 09/11/21 11:11 Antibiotics) was a child Review of Systems Review of Systems ROS: Yes All systems reviewed with the patient and are negative except as otherwise documented Exam Vital Signs (past 8 hours): - 10/24/24 12:22 Temperature 98.1 F Pulse Rate 88 Respiratory Rate 14 Blood Pressure 110/89 Pulse Oximetry 97 Oxygen Delivery Method Room Air Oxygen Delivery Method Room Air Narrative Exam Narrative: Gen: NAD, sitting comfortably in bed, appears well HEENT: Sclera are anicteric, head is normocephalic and atraumatic, trachea is midline. CV: RRR, no JVD Resp: clear to auscultation bilaterally, equal chest wall movement bilaterally Abd: soft, nontender, normoactive bowel sounds Ext: no edema, full range of motion Neuro: Cranial nerves II-XII grossly intact, no focal deficits Skin: No erythema or ecchymosis Assessment & Plan Assessment and plan (1) Personal history of colonic polyps: Status: Acute Assessment & Plan narrative: Patient presents for colonoscopy Risks, benefits, alternatives to colonoscopy explained, including but not limited to bowel perforation or other serious complication requiring surgery at less than 1 in 5000 colonoscopies, abdominal pain, cramping or bleeding and less than 1% of colonoscopies, and the chances that we find a diagnosis that would require further intervention of about 2%. Patient agrees to proceed. Time-Based Coding :: [TOTAL MINUTES] spent with patient and on the chart (including review of chart, obtaining history, exam, reviewing outside data, placing orders, documenting exam and treatment plan, and counseling patient) on [DATE]. PROFEE Radiology Physician Document charge(s): No
--- NOTE | 2024-10-24 13:27 | PM.OP.COLON ---
Operative Date/Time/Diagnoses Date of procedure: 10/24/24 Time of procedure: 13:27 Pre-op diagnosis: Personal history of polyps Post-op diagnosis: same (Ascending colon polyp) Procedure & Clinicians Study performed: Colonoscopy with cold snare polypectomy Same procedure as scheduled: Yes Indications: Personal history of polyps Surgeon: Fede Lucas Procedure Notes SCOAP/Timeout: Performed Procedure in detail: Time-out was performed. Mac was induced. Patient was placed in left lateral decubitus position. The perineum was inspected without any gross abnormality. Lubricated pediatric colonoscope was inserted and advanced to the cecum. The terminal ileum was intubated. The colonoscope was withdrawn slowly inspecting the circumference of the colon. A small, less than 10 mm ascending colon polyp was noted, removed completely with cold snare. It was retrieved. Very small polyps may have been missed, prep quality was adequate. Extensive sigmoid diverticulosis. Retroflexed view of the rectum showed small, non prolapsed nonbleeding internal hemorrhoids. The scope was withdrawn the patient was taken to PACU in good condition. Scope withdrawal time: 9 Sedation minutes: 18 Findings: divertiulosis and polyp(s) Specimen(s): other (1. Ascending colon polyp) Complications: none Impression: Polyp Post-procedure Recommendations: Colonoscopy in 5 years (Next colonoscopy in 7 years) Follow up: as needed Disposition: PACU
[2024-10-24 13:30] VITALS: BP 131/78; PULSE 94; RESP 16; TEMP 36.1; O2SAT 94
[2024-10-24 13:35] VITALS: BP 126/80; PULSE 10; RESP 81; O2SAT 93
[2024-10-24 13:40] VITALS: BP 116/72; PULSE 81; RESP 11; O2SAT 95
[2024-10-24 13:47] VITALS: BP 129/79; PULSE 82; RESP 13; O2SAT 93
[2024-10-24 13:49] VITALS: BP 118/70; PULSE 83; RESP 11; TEMP 36.5; O2SAT 95
== END 2024-10-24 14:20 | disposition home or self-care (01) ==
PROVIDERS: Family Provider Internal Medicine; PCP Internal Medicine; Referring Provider Surgery; Visit Provider Surgery
PROC: 0DJD8ZZ Inspection of Lower Intestinal Tract, Via Natural or Artificial Opening Endoscopic (ICD-10-PCS; CPT 45378; principal; 2024-10-24 13:00)
DX: Z12.11 Encounter for screening for malignant neoplasm of colon (principal); D12.2 Benign neoplasm of ascending colon; K57.30 Diverticulosis of large intestine without perforation or abscess without bleeding; K64.8 Other hemorrhoids; Z86.0100 Personal history of colon polyps, unspecified
CPT/HCPCS: 45385; J2704